=== PATIENT | female | born 1945 | race Caucasian/White ===

== ENCOUNTER → 2016-07-18 | Outpatient (CLI) | payer OTHER ==
[~2016-07-18] MED LIST: ASPIRIN81 M2 PO; CENTRAVITES 501 EAC1 PO; ENDOCET 5-3251 EACH PO; FERROUS SULFAT325 MG PO; LISINOPRIL20 MG PO; LOVENOX40 MG/0.4 SC; MEVACOR10 M1 PO; PRILOSEC20 MG PO
== END | disposition home or self-care (01) ==
DX: M17.12 Unilateral primary osteoarthritis, left knee (principal); M25.562 Pain in left knee; Z74.1 Need for assistance with personal care
CPT/HCPCS: 97110 GP; 97150 GO; 97161 GP; 97165 GO; G8978 GP; G8979 GP; G8980 GP; G8987 GO; G8988 GO; G8989 GO

== ENCOUNTER 2016-07-25 05:26 | Inpatient (IN) | payer OTHER ==
[~2016-07-25] VITALS: Ht 160 cm; Wt 71.6 kg
[~2016-07-25 05:26] MED LIST changes: -ENDOCET 5-3251 EACH PO; -LOVENOX40 MG/0.4 SC
[2016-07-25 06:34] VITALS: BP 174/79
[2016-07-25 10:19] LABS: HEMATOCRIT 35.8 % (36.0-46.0); MCH 29.3 PG (29.0-34.0); MCHC 33.5 G/DL (30.0-36.0); MCV 87.5 FL (83-99); MEAN PLAT.VOLUME 10.1 uM^3 (9.5-12.4); PLATELET COUNT 214 K/uL (156-360); RBC DIS.WIDTH-CV 13.7 % (11.8-14.6); RBC DIS.WIDTH-SD 43.9 % (39-53); RED BLOOD COUNT 4.09 M/uL (3.80-5.20)
[2016-07-25 10:38] VITALS: BP 140/71
[2016-07-25 15:38] VITALS: BP 174/82
[2016-07-25 20:08] VITALS: BP 188/84
[2016-07-26 00:19] VITALS: BP 156/87
[2016-07-26 03:44] VITALS: BP 177/79
[2016-07-26 05:57] LABS: HEMATOCRIT 35.1 % (36.0-46.0); MCV 86.9 FL (83-99)
[2016-07-26 06:17] LABS: ANION GAP 9 MEQ/L (2-14); CHLORIDE 96 MEQ/L (99-109); GFR ESTIMATE (CALCULATED) > 59 mL/min/; GLUCOSE 130 mg/dL (70-99); POTASSIUM 4.3 MEQ/L (3.7-5.4); SAMPLE HEMOLYSIS CHECK 0; SAMPLE ICTERIC CHECK 0; SAMPLE LIPEMIA CHECK 0; SODIUM 130 MEQ/L (136-147); UREA NITROGEN (BUN) 12 mg/dL (9-23)
[2016-07-26 08:00] VITALS: BP 197/81
[2016-07-26 12:15] VITALS: BP 172/79
[2016-07-26 15:57] VITALS: BP 184/79
[2016-07-26 20:21] VITALS: BP 166/73
[2016-07-27] VITALS: BP 133/64
[2016-07-27 04:00] VITALS: BP 180/70
[2016-07-27 06:26] LABS: HEMATOCRIT 28.9 % (36.0-46.0)
[2016-07-27 06:50] LABS: ANION GAP 8 MEQ/L (2-14); CHLORIDE 95 MEQ/L (99-109); GFR ESTIMATE (CALCULATED) > 59 mL/min/; GLUCOSE 118 mg/dL (70-99); POTASSIUM 4.1 MEQ/L (3.7-5.4); SAMPLE HEMOLYSIS CHECK 0; SAMPLE ICTERIC CHECK 0; SAMPLE LIPEMIA CHECK 0; SODIUM 129 MEQ/L (136-147); UREA NITROGEN (BUN) 9 mg/dL (9-23)
[2016-07-27 08:14] VITALS: BP 134/66
[2016-07-27] MEDS ORDERED: ENDOCET 5-3251 EACH PO (09:12)
[2016-07-27] MEDS ORDERED: LOVENOX40 MG/0.4 SC (09:12)
[2016-07-27 11:57] VITALS: BP 140/64
[2016-07-27 15:37] VITALS: BP 159/77
== END 2016-07-27 18:10 | DRG 470 ==
LOC: 2SOUTH → 3WEST 10:18 → 2SOUTH 11:44 → 3WEST 07-27 18:10
PROVIDERS: Orthopaedic Surgery; Physician Assistant
PROC: 0SRD0J9 Replacement of Left Knee Joint with Synthetic Substitute, Cemented, Open Approach (ICD-10-PCS; principal; 2016-07-25)
DX: M17.12 Unilateral primary osteoarthritis, left knee (principal); I10 Essential (primary) hypertension; E78.00 Pure hypercholesterolemia, unspecified; K21.9 Gastro-esophageal reflux disease without esophagitis; E87.1 Hypo-osmolality and hyponatremia; E78.5 Hyperlipidemia, unspecified; E87.8 Other disorders of electrolyte and fluid balance, not elsewhere classified
CPT/HCPCS: 73560; 80048; 83930; 83935; 84443; 85014; 85018; 85027; C1713; J0131; J0690; J1100; J1170; J1650; J2250; J2405; J7030; J7050